=== PATIENT | male | born 1955 | race Two or more races ===

== ENCOUNTER 2022-06-18 11:07 | Emergency (ER) | payer OTHER ==
[~2022-06-18] VITALS: Ht 172.7 cm; Wt 116.5 kg
[2022-06-18] MEDS ORDERED: SODIUM CHLORIDE 0.9% 1,000 ML IVB ONE (11:45)
[2022-06-18 12:34] LABS: Urine Bacteria NONE SEEN /hpf (None Seen); Urine Blood 3+ /uL (Negative); Urine Mucus FEW (None Seen); Urine Specific Gravity 1.026 (1.001-1.035); Urine WBC 239 /hpf (0 - 3)
[2022-06-18 12:48] LABS: Basophils # (auto) 0.1 10 ^3/uL (0-0.2); Basophils % (auto) 0.4 % (0.0-2.0); Eosinophils # (auto) 0.1 10 ^3/uL (0-0.8); Eosinophils % (auto) 0.7 % (0.0-7.0); Hematocrit 42.5 % (41.0-53.0); Hemoglobin 14.5 g/dL (13.5-17.5); Lymphocytes # (auto) 1.4 10 ^3/uL (0.4-5.4); Lymphocytes % (auto) 11.1 % (10.0-50.0); Mean Corpuscular Hemoglobin 28.5 pg (28.0-32.0); Monocytes # (auto) 1.3 10 ^3/uL (0-1.3); Monocytes % (auto) 9.8 % (0.0-12.0); Red Blood Cells 5.07 10^6/uL (4.5-5.90); Red Cell Distribution Width 14.1 % (11.8-14.3); White Blood Cell 12.8 10^3/uL (4.4-10.8)
[2022-06-18 13:06] LABS: Albumin 3.8 g/dL (3.4-5.0); Calcium 8.9 mg/dL (8.5-10.1); Potassium 4.4 mmol/L (3.5-5.1)
[2022-06-18 13:12] LABS: Bilirubin, Total 0.7 mg/dL (0.2-1.0); Total Protein 7.5 g/dL (6.4-8.2)
[2022-06-18] MEDS ORDERED: cefTRIAXone 1GM/50ML D5W 50 ML IV ONE (14:00)
[2022-06-18] MEDS ORDERED: ONDA-144 PO ×2 (16:26→18:00)
[2022-06-18] MEDS ORDERED: CEPH-510 PO ×2 (16:26→18:00)
[2022-06-18 17:55] VITALS: BP 154/94
== END 2022-06-18 18:03 | disposition home or self-care (01) ==
LOC: ER 11:07
DX: N10 Acute pyelonephritis (principal); I10 Essential (primary) hypertension; E11.9 Type 2 diabetes mellitus without complications; E78.5 Hyperlipidemia, unspecified
CPT/HCPCS: 36415; 74176; 80053; 81001; 83605; 83690; 85025; 96365; 99285; J0696; J7030

== ENCOUNTER 2022-12-01 08:57 | Emergency (ER) | payer OTHER ==
[~2022-12-01] VITALS: Ht 175.3 cm; Wt 115.2 kg
[~2022-12-01 08:57] MED LIST: CEPH-510 PO; ONDA-144 PO
[2022-12-01 09:58] LABS: Urine Bacteria FEW /hpf (None Seen); Urine Blood Negative /uL (Negative); Urine Clarity HAZY (Clear); Urine Color Yellow (Yellow); Urine Protein, UAD Negative (Negative); Urine Specific Gravity 1.015 (1.001-1.035); Urine Urobilinogen Normal (Negative); Urine WBC 94 /hpf (0 - 3); Urine pH 5.5 (5.0-8.0)
[2022-12-01 09:59] LABS: Basophils # (auto) 0.1 10 ^3/uL (0-0.2); Basophils % (auto) 0.7 % (0.0-2.0); Eosinophils # (auto) 0.2 10 ^3/uL (0-0.8); Hematocrit 43.2 % (41.0-53.0); Hemoglobin 14.2 g/dL (13.5-17.5); Lymphocytes % (auto) 12.3 % (10.0-50.0); Mean Corpuscular Hemoglobin 27.4 pg (28.0-32.0); Mean Corpuscular Hgb Conc. 32.8 g/dL (32.0-36.0); Mean Corpuscular Volume 83.4 fL (80.0-100.0); Monocytes # (auto) 0.6 10 ^3/uL (0-1.3); Neutrophils # (auto) 6.1 10 ^3/uL (1.6-8.6); Red Blood Cells 5.18 10^6/uL (4.5-5.90); Red Cell Distribution Width 14.1 % (11.8-14.3); White Blood Cell 7.9 10^3/uL (4.4-10.8)
[2022-12-01 10:14] LABS: Albumin 3.5 g/dL (3.4-5.0); Calcium 8.7 mg/dL (8.5-10.1); Potassium 4.3 mmol/L (3.5-5.1)
[2022-12-01 10:18] LABS: BUN/Creatinine Ratio 13.5 (10.0-20.0); Bilirubin, Total 0.5 mg/dL (0.2-1.0); Total Protein 7.1 g/dL (6.4-8.2)
[2022-12-01] MEDS ORDERED: NITR-87 PO ×4 (10:38→11:10)
[2022-12-01 11:16] LABS: INR 1.01 (0.9-1.15); Prothrombin Time 10.6 sec (9.3-11.8)
[2022-12-01 11:22] VITALS: BP 197/99; PULSE 83; RESP 18; O2SAT 97
== END 2022-12-01 11:22 | disposition home or self-care (01) ==
LOC: ER 08:57
DX: N39.0 Urinary tract infection, site not specified (principal); E11.9 Type 2 diabetes mellitus without complications; E78.5 Hyperlipidemia, unspecified; I10 Essential (primary) hypertension; I25.2 Old myocardial infarction
CPT/HCPCS: 36415; 80053; 81001; 82962; 83690; 85025; 85610; 87086; 87088; 87186

== ENCOUNTER 2024-10-23 08:23 | Emergency (ER) | payer OTHER ==
[~2024-10-23] VITALS: Ht 175.3 cm; Wt 109.5 kg
[~2024-10-23 08:23] MED LIST changes: -CEPH-510 PO; +NITR-87 PO
--- NOTE | 2024-10-23 08:48 | ED.PDOC ---
General HPI Comments A 69 YEAR-OLD MALE PRESENTS TO THE ED WITH A CHIEF COMPLAINT OF DYSURIA FOR X2 WEEKS. PT STATES HE STARED HAVING PAIN WITH URINATION 2 WEEKS AGO. WHEN URINATION, HE C/O LOWER ABD PAIN WITH SMALL URINE OUTPUT. HE HAS HX OF UTI 2 YEARS AGO FOR SAME COMPLAINTS. PT DENIES FEVER, SOB, CHEST PAIN, NAUSEA, VOMITING, BLOOD IN THE URINE AND OTHER COMPLAINTS. Chief Complaint: Urinary Time Seen by MD: 08:44 Reviewed notes: Nurses Notes, Medications, Allergies Allergies: Coded Allergies: NO KNOWN ALLERGIES (Unverified , 09/30/11) Home Meds Active Scripts Phenazopyridine HCl (Phenazopyridine Hydrochlo) 200 Mg Tab, 200 MG PO TID, #6 TAB Prov:LAINEY GUADALUPE 10/23/24 Ciprofloxacin Hcl (Cipro) 500 Mg Tab, 1 TAB PO BID, #20 TAB Prov:LAINEY GUADALUPE 10/23/24 Nitrofurantoin Monohydrate Mac (Macrobid) 100 Mg Cap, 100 MG PO BID PRN for 10 Days, #20 CAP Prov:LAURA SCHMID MD 12/01/22 Nitrofurantoin Monohydrate Mac (Macrobid) 100 Mg Cap, 100 MG PO BID PRN for 10 Days, #20 CAP Prov:LAURA SCHMID MD 12/01/22 Nitrofurantoin Monohydrate Mac (Macrobid) 100 Mg Cap, 100 MG PO BID for 10 Days, #20 CAP Prov:LAURA SCHMID MD 12/01/22 Nitrofurantoin Monohydrate Mac (Macrobid) 100 Mg Cap, 100 MG PO BID for 10 Days, CAP Prov:LAURA SCHMID MD 12/01/22 Ondansetron (Zofran) 4 Mg Tab, 4 MG PO Q8HPRN PRN, #14 MG Prov:CODY THOMPSON MD 06/18/22 Information Source: Patient Mode of Arrival: Ambulatory Severity: Moderate Inability to void: None Timing: Days, Weeks (2) Duration: Since onset, Days Prehospital treatment: None Onset: Spontaneous Symptoms: Dysuria History of: UTI, Other (HTN, HIGH LIPIDS, ) Location: Suprapubic Penile discharge: None Modifying factors: None associated signs and symptoms: Abdominal Pain, Dysuria Past Medical History PAST MEDICAL HISTORY: DM, High Lipids, HTN, [place] Surgical History: CABG Family History Family History: No family hx of DM Social History Smoker: Non-Smoker Alcohol: Denies ETOH Use Drugs: Denies Drug Use Lives In: Home Constitutional: denies: chills, diaphoresis, fatigue, fever, malaise, sweats, weakness, others EENTM: denies: blurred vision, double vision, ear bleeding, ear discharge, ear drainage, ear pain, ear ringing, eye pain, eye redness, hearing loss, mouth pain, mouth swelling, nasal discharge, nose bleeding, nose congestion, nose pain, photophobia, tearing, throat pain, throat swelling, voice changes, others Respiratory: denies: cough, hemoptysis, orthopnea, SOB at rest, shortness of breath, SOB with excertion, stridor, wheezing, others Cardiovascular: denies: chest pain, dizzy spells, diaphoresis, Dyspnea on exertion, edema, irregular heart beat, left arm pain, lightheadedness, palpitations, PND, syncope, others Gastrointestinal: reports: abdominal pain; denies: abdomen distended, blood streaked bowels, constipated, diarrhea, dysphagia, difficulty swallowing, hematemesis, melena, nausea, poor appetite, poor fluid intake, rectal bleeding, rectal pain, vomiting, others Genitourinary: reports: dysuria; denies: burning, flank pain, frequency, hematuria, incontinence, penile discharge, penile sore, pain, testicle pain, testicle swelling, urgency, others Neurological: denies: dizziness, fainting, headache, left sided numbness, left sided weakness, numbness, paresthesia, pre-existing deficit, right sided numbness, right sided weakness, seizure, speech problems, tingling, tremors, weakness, others Musculoskeletal: denies: back pain, gout, joint pain, joint swelling, muscle pain, muscle stiffness, neck pain, others Integumetry: denies: bruises, change in color, change in hair/nails, dryness, laceration, lesions, lumps, rash, wounds, others Allergic/Immunocompromised: denies: Difficulty Healing, Frequent Infections, Hives, Itching, others Hematologic/Lymphatic: denies: anemia, blood clots, easy bleeding, easy bruisi ng, swollen glands, others Endocrine: denies: excessive hunger, excessive sweating, excessive thirst, exce ssive urination, flushing, intolerance to cold, intolerance to heat, unexplained weight gain, unexplained weight loss, others Psychiatric: denies: anxiety, bipolar disorder, depression, hopeless, panic disorder, schizophrenia, sleepless, suicidal, others All Other Systems: Reviewed and Negative Physical Exam General Appearance: No Apparent Distress, Normal HEENT: Normal ENT Inspection, PERRL/EOMI, Pharynx Normal, TMs Normal Neck: Full Range of Motion, Non-Tender, Normal, Normal Inspection Respiratory: Chest Non-Tender, Lungs Clear, No Accessory Muscle Use, No Respiratory Distress, Normal Breath Sounds Cardiovascular: No Edema, No JVD, No Murmur, No Gallop, Normal Peripheral Pulses, Regular Rate/Rhythm Breast Exam: Deferred Gastrointestinal: No Organomegaly, No Pulsatile Mass, Normal Bowel Sounds, Soft, Suprapubic (TENDERNESS, NO GUARDING AND REBOUND TENDERNESS. ), Tenderness Genitalia: Deferred Pelvic: Normal External Exam, Tender Uterus Rectal: Deferred Extremities: No calf tenderness, Normal capillary refill, Normal inspection, Normal range of motion, Non-tender, No pedal edema Musculoskeletal : Apperance: Normal Neurologic: Alert, nursing home assistant II-XII nml as Tested, No Motor Deficits, Normal Affect, Normal Mood, No Sensory Deficits Cerebellar Function: Normal Reflexes: Normal Skin: Dry, Normal Color, Warm Peripheral Pulses: 2+ carotid (R), 2+ carotid (L) Lymphatic: No Adenopathy Was a procedure done? Was a procedure done?: No Differential Diagnosis Kidney stone (Female): N/A Kidney stone (Male): Urinary obstruction, Urolithiasis, Urinary tract infection Penile/Scrotal: Prostatitis, UTI X-Ray, Labs, Meds, VS Vital Signs Date Time Temp Pulse Resp B/P (MAP) Pulse Ox O2 Delivery O2 Flow Rate FiO2 10/23/24 10:35 98.3 63 16 144/79 (100) 95 98.3 10/23/24 08:42 98.9 64 18 182/89 (120) 98 98.9 Lab Test 10/23/24 10:00 10/23/24 08:49 Range/Units Urine Color Yellow Yellow Urine Clarity Clear Clear Urine pH 5.0 5.0-9.0 Urine Specific [place] 1.021 1.001-1.035 Urine Protein Negative Negative Urine Ketones Negative Negative Urine Blood 1+ H Negative /uL Urine Nitrite Negative Negative Urine Bilirubin Negative Negative Urine Urobilinogen Normal Negative mg/dL Urine Leukocyte Esterase 1+ Negative /uL Urine RBC 6 0 - 3 /hpf Urine Microscopic WBC 33 H 0-3 /HPF Urine Squamous Epithelial Cells Few <5 /hpf Urine Bacteria None seen None Seen /hpf Urine Glucose Normal Normal mg/dL White Blood Count 5.0 4.4-10.8 10^3/uL Red Blood Count 5.27 4.5-5.90 10^6/uL Hemoglobin 15.1 13.5-17.5 g/dL Hematocrit 43.9 41.0-53.0 % Mean Corpuscular Volume 83.4 80.0-100.0 fL Mean Corpuscular Hemoglobin 28.6 28.0-32.0 pg Mean Corpuscular Hemoglobin Concent 34.3 32.0-36.0 g/dL Red Cell Distribution Width 13.6 11.8-14.3 % Platelet Count 234 140-450 10^3/uL Mean Platelet Volume 7.9 6.9-10.8 fL Neutrophils (%) (Auto) 56.8 37.0-80.0 % Lymphocytes (%) (Auto) 24.5 10.0-50.0 % Monocytes (%) (Auto) 12.5 H 0.0-12.0 % Eosinophils (%) (Auto) 4.8 0.0-7.0 % Basophils (%) (Auto) 1.4 0.0-2.0 % Neutrophils # (Auto) 2.9 1.6-8.6 10 ^3/uL Lymphocytes # (Auto) 1.2 0.4-5.4 10 ^3/uL Monocytes # (Auto) 0.6 0-1.3 10 ^3/uL Eosinophils # (Auto) 0.2 0-0.8 10 ^3/uL Basophils # (Auto) 0.1 0-0.2 10 ^3/uL Nucleated Red Blood Cells 0.1 % Sodium Level 142 136-145 mmol/L Potassium Level 4.3 3.5-5.1 mmol/L Chloride Level 105 98-107 mmol/L Carbon Dioxide Level 29 20-31 mmol/L Anion Gap 8 5-15 Blood Urea Nitrogen 12 9-23 mg/dL Creatinine 1.05 0.700-1.30 mg/dL Glomerular Filtration Rate Calc 76 >90 mL/min BUN/Creatinine Ratio 11.4 10.0-20.0 Serum Glucose 133 H 74-106 mg/dL Calcium Level 9.9 8.7-10.4 mg/dL Current Medications Medications (Trade) Dose Ordered Sig/Jnais Route Start Time Stop Time Status Last Admin Ceftriaxone Sodium (Rocephin) 1,000 mg ONCE ONCE IM 10/23/24 10:30 10/23/24 10:31 DC 10/23/24 10:45 Phenazopyridine HCl (Pyridium Tablet) 200 mg ONCE ONCE PO 10/23/24 10:30 10/23/24 10:31 DC 10/23/24 10:45 CLINICAL INFORMATION: Dysuria. Lower abdominal pain. TECHNIQUE: Axial CT images of the abdomen and pelvis were obtained without IV contrast. Coronal and sagittal reformatted images were obtained, reviewed, and stored. Evaluation of the parenchymal organs is limited without IV contrast. Evaluation of the bowel and mesentery is limited without oral contrast. All CT scans at this medical facility are performed using dose modulation techniques as appropriate to a performed exam including the following: Automated exposure control was utilized; adjustment of the MA and/or KV according to patient size; and use of iterative reconstruction technique. CTDIvol = 22.38 mGy DLP = 1280.82 mGy-cm COMPARISON: CT CT AB PEL WO CON-NO ORAL OR IV on DOS: 06/18/22 FINDINGS: Lung bases: Dependent atelectasis. Respiratory motion artifact limits evaluation. Small pericardial effusion. [id number] cardiomegaly. Partially visualized dense coronary artery calcification. Liver: Hepatic steatosis. Otherwise grossly unremarkable given the limitations of motion artifact. Biliary: No calcified gallstones visualized. Spleen: Grossly unremarkable. Pancreas: Grossly unremarkable. Adrenal glands: Unremarkable. No mass. Kidneys: No hydronephrosis. No renal or ureteral calculi. Mild nonspecific bilateral perinephric stranding. Aorta/Vascular: Dense arterial calcification. No abdominal aortic aneurysm. Retroperitoneum: No mass or lymphadenopathy. Bowel/mesentery: No small bowel obstruction. No free air or free fluid. Appendix is visualized and appears unremarkable. Scattered small colonic diverticula wit hout adjacent inflammatory changes to suggest diverticulitis. Pelvic organs: Grossly unremarkable. Bladder: Bladder is underdistended and suboptimally evaluated. Circumferential thickening of the bladder wall may be due to underdistention. Abdominal wall: No mass or hernia. Bones: No acute fracture or suspicious intraosseous lesion. IMPRESSION: 1. Motion limited study. 2. No hydronephrosis and no renal or ureteral calculi. Mild nonspecific bilateral perinephric stranding. Similar findings are seen on the prior exam. 3. Hepatic steatosis. 4. Cardiomegaly and small pericardial effusion. 5. Underdistended bladder, suboptimally evaluated. Circumferential thickening of the bladder wall may be due to underdistention. Correlate clinically to exclude cystitis. 6. Scattered small colonic diverticula without adjacent inflammatory changes to suggest diverticulitis. 7. Additional findings as detailed above. X-Ray, Labs, Meds, VS Comment EXTERNAL MEDICAL RECORDS: NONE INDEPENDENT HISTORIANS: NONE SOCIAL DETERMINANTS OF HEALTH: NONE LABS ORDERED: URINALYSIS, METABOLIC PANEL, BLOOD COUNT REVIEWED AND INTERPRETED RESULTS: URINE - WBC: 33H, LEUKOCYTE ESTERASE: 1+, URINE RBC: 6 / CHEMISTRY - 133 IMAGING ORDERED: NONE TREATMENTS ORDERED: ROCEPHIN 1GM IM AND PYRIDIUM 200MG PATIENT'S CASE AND RESULTS HAVE BEEN DISCUSSED WITH THE ED ATTENDING PHYSICIAN AND THEY AGREE WITH MY PLAN OF CARE. RX: CIPRO AND PYRIDIUM TABLET I HAVE DISCUSSED LAB AND IMAGING RESULTS WITH THE PATIENT AND HAVE INSTRUCTED THE PATIENT TO FOLLOW UP WITH THEIR PCP IN 1-2 DAYS. THE PATIENT FULLY UNDERSTANDS THEIR RESULTS AND ARE AWARE THEY NEED TO FOLLOW UP WITH THEIR PCP FOR FURTHER EVALUATION IF THEIR SYMPTOMS PERSIST. Time of 1ST Reevaluation: 10:51 Reevaluation 1ST: Improved Consultation: Urology Patient Education/Counseling: Diagnosis, Treatment, Need For Follow Up Family Education/Counseling: Diagnosis, Treatment, Need For Follow Up Medical Screening: No EMC Exist At This Time SEPSIS Sepsis Screen Physician Orders Ct Ab Pel Wo Con-No Oral Or Iv (10/23/24 08:55) Vital Signs Date Time Temp Pulse Resp B/P (MAP) Pulse Ox O2 Delivery O2 Flow Rate FiO2 10/23/24 10:35 98.3 63 16 144/79 (100) 95 98.3 10/23/24 08:42 98.9 64 18 182/89 (120) 98 98.9 Laboratory Tests Test 10/23/24 08:49 White Blood Count 5.0 10^3/uL (4.4-10.8) Medications Medications Dose Ordered Sig/Janis Route Start Time Stop Time Status Last Admin Dose Admin Ceftriaxone Sodium 1,000 mg ONCE ONCE IM 10/23/24 10:30 10/23/24 10:31 DC 10/23/24 10:45 Phenazopyridine HCl 200 mg ONCE ONCE PO 10/23/24 10:30 10/23/24 10:31 DC 10/23/24 10:45 Departure 1 Departure Time of Disposition: 11:10 Impression: Primary Impression: Urinary tract infection Qualified Codes: N30.00 - Acute cystitis without hematuria Disposition: HOME / SELF CARE / HOMELESS Condition: Stable Additional Instructions: FOLLOW-UP WITH PCP IN 1 TO 2 DAYS. TAKE MEDICATIONS PRESCRIBED. RETURN TO ED FOR ANY NEW OR WORSENING SYMPTOMS. e-Prescriptions Phenazopyridine HCl (Phenazopyridine Hydrochlo) 200 Mg Tab 200 MG PO TID, #6 TAB Prov: LAINEY GUADALUPE 10/23/24 Ciprofloxacin Hcl (Cipro) 500 Mg Tab 1 TAB PO BID, #20 TAB Prov: LAINEY GUADALUPE 10/23/24 Discharged With: Self Critical Care Note Critical Care Time?: No Stability Stability form required: No Heart Score Heart Score: Heart Score Response (Comments) Value History N/A 0 EKG N/A 0 Age N/A 0 Risk Factors N/A 0 Troponin N/A 0 Total 0 I personally scribed for LAINEY GUADALUPE ([email or web address]) on 10/23/24 at 08:48. Electronically submitted by Carleen Vanegas ([employer]). I personally scribed for LAINEY GUADALUPE ([email or web address]) on 10/23/24 at 08:53. Electronically submitted by Carleen Vanegas ([employer]). I personally scribed for LAINEY GUADALUPE ([email or web address]) on 10/23/24 at 10:17. Electronically submitted by Carleen Vanegas ([employer]). I personally scribed for LAINEY GUADALUPE ([email or web address]) on 10/23/24 at 10:18. Electronically submitted by Carleen Vanegas ([employer]). I personally scribed for LAINEY GUADALUPE ([email or web address]) on 10/23/24 at 10:21. Electronically submitted by Carleen Vanegas ([employer]). I personally scribed for LAINEY GUADALUPE ([email or web address]) on 10/23/24 at 10:22. Electronically submitted by Carleen Vanegas ([employer]). I personally scribed for LAINEY GUADALUPE ([email or web address]) on 10/23/24 at 10:23. Electronically submitted by Carleen Vanegas ([employer]). LAINEY GUADALUPE Oct 23, 2024 08:48
[2024-10-23 09:00] LABS: Hematocrit 43.9 % (41.0-53.0); Hemoglobin 15.1 g/dL (13.5-17.5); Mean Corpuscular Hemoglobin 28.6 pg (28.0-32.0); Mean Corpuscular Volume 83.4 fL (80.0-100.0); Nucleated Red Blood Cells % 0.1 %
[2024-10-23 09:08] LABS: Chloride 105 mmol/L (98-107); Potassium 4.3 mmol/L (3.5-5.1); Sodium 142 mmol/L (136-145)
[2024-10-23 09:09] LABS: Anion Gap 8 (5-15); Calcium 9.9 mg/dL (8.7-10.4); Carbon Dioxide 29 mmol/L (20-31)
[2024-10-23 09:14] LABS: BUN/Creatinine Ratio 11.4 (10.0-20.0); Blood Urea Nitrogen 12 mg/dL (9-23)
[2024-10-23 09:18] LABS: Glucose 133 mg/dL (74-106)
--- NOTE | 2024-10-23 10:04 | DVH ---
CLINICAL INFORMATION: Dysuria. Lower abdominal pain. TECHNIQUE: Axial CT images of the abdomen and pelvis were obtained without IV contrast. Coronal and s agittal reformatted images were obtained, reviewed, and stored. Evaluation of the parenchymal organs is limited without IV contrast. Evaluation of the bowel and mesentery is limited without oral contras t. All CT scans at this medical facility are performed using dose modulation techniques as appropriat e to a performed exam including the following: Automated exposure control was utilized; adjustment of the MA and/or KV according to patient size; and use of iterative reconstruction technique. CTDIvol = 22.38 mGy DLP = 1280.82 mGy-cm COMPARISON: CT CT AB PEL WO CON-NO ORAL OR IV on DOS: 06/18/22 FINDINGS: Lung bases: Dependent atelectasis. Respiratory motion artifact limits evaluation. Small pericardial e ffusion. Ziit-xo-cosahuxa cardiomegaly. Partially visualized dense coronary artery calcification. Liver: Hepatic steatosis. Otherwise grossly unremarkable given the limitations of motion artifact. Biliary: No calcified gallstones visualized. Spleen: Grossly unremarkable. Pancreas: Grossly unremarkable. Adrenal glands: Unremarkable. No mass. Kidneys: No hydronephrosis. No renal or ureteral calculi. Mild nonspecific bilateral perinephric stra nding. Aorta/Vascular: Dense arterial calcification. No abdominal aortic aneurysm. Retroperitoneum: No mass or lymphadenopathy. Bowel/mesentery: No small bowel obstruction. No free air or free fluid. Appendix is visualized and ap pears unremarkable. Scattered small colonic diverticula without adjacent inflammatory changes to sug gest diverticulitis. Pelvic organs: Grossly unremarkable. Bladder: Bladder is underdistended and suboptimally evaluated. Circumferential thickening of the blad jessi wall may be due to underdistention. Abdominal wall: No mass or hernia. Bones: No acute fracture or suspicious intraosseous lesion. IMPRESSION: 1. Motion limited study. 2. No hydronephrosis and no renal or ureteral calculi. Mild nonspecific bilateral perinephric strandi ng. Similar findings are seen on the prior exam. 3. Hepatic steatosis. 4. Cardiomegaly and small pericardial effusion. 5. Underdistended bladder, suboptimally evaluated. Circumferential thickening of the bladder wall may be due to underdistention. Correlate clinically to exclude cystitis. 6. Scattered small colonic diverticula without adjacent inflammatory changes to suggest diverticuliti s. 7. Additional findings as detailed above.
[2024-10-23 10:11] LABS: Urine Protein, UAD Negative (Negative)
[2024-10-23 10:35] VITALS: BP 144/79; PULSE 63; RESP 16; TEMP 98.3; O2SAT 95
[2024-10-23] MEDS: PHENAZOPYRIDINE HCL 100 MG TAB PO ONE (10:45)
[2024-10-23] MEDS: cefTRIAXone SOD 1,000 MG VL IM ONE (10:45)
[2024-10-23] MEDS ORDERED: CIPR-173 PO (10:50)
[2024-10-23] MEDS ORDERED: PHEN-922 PO (10:50)
== END 2024-10-23 10:57 | disposition home or self-care (01) ==
LOC: ER 08:23
DX: N39.0 Urinary tract infection, site not specified (principal); E11.9 Type 2 diabetes mellitus without complications; I10 Essential (primary) hypertension; I25.2 Old myocardial infarction; Z95.1 Presence of aortocoronary bypass graft
CPT/HCPCS: 36415; 74176; 80048; 81001; 85025; 96372; 99285; J0696